=== PATIENT | female | born 1955 | race Caucasian/White ===

== ENCOUNTER 2020-01-15 13:58 | Inpatient (IN) | payer OTHER ==
[~2020-01-15] VITALS: Ht 154.9 cm; Wt 80.7 kg
[2020-01-15] MEDS ORDERED: ONDANSETRON HCL INJ 2MG/ML 2ML 2 MG/ML VIAL IV NR (14:00)
[2020-01-15] MEDS ORDERED: SODIUM CHLORIDE 0.9% 1000ML 1,000 ML IV STA ×2 (14:06→15:03)
--- NOTE | 2020-01-15 14:06 | Emergency Department Note ---
History of Present Illnes History of Present Illness Chief Complaint: Abdominal Complaints History of Present Illness This is a 64 year old female presents to the ED for dysuria with n/v and epigastric pain of one day duration. 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 Any updates have been documented here. Past Medical History Recent Fever: No Clinical Suspicion of Infectio: No Past Medical History: Hypertension, Diabetes Past Surgical History: Appendectomy Social History Smoking Cessation: Never Smoker Alcohol Use: None Any Illegal Drug Use: No Review of Systems Review of Systems Constitutional: Denies fever EENTM: Reports no symptoms Cardiovascular: Reports no symptoms Respiratory: Reports no symptoms Gastrointestinal: Reports abdominal pain, Reports nausea, Reports vomiting Genitourinary: Reports no symptoms Musculoskeletal: Reports no symptoms Integumentary: Reports no symptoms Neurological: Reports no symptoms Psychological: Reports no symptoms Endocrine: Reports no symptoms Hematological/Lymphatic: Reports no symptoms Physical Exam Related Data Allergies: Coded Allergies: No Known Allergies (Unverified , 01/15/20) Triage Vital Signs Vital Signs Date Time Temp Pulse Resp B/P (MAP) Pulse Ox O2 Delivery O2 Flow Rate FiO2 01/15/20 14:04 97.5 47 18 123/101 99 Room Air 01/15/20 16:14 2.0 Vital signs reviewed: Yes Physical Exam CONSTITUTIONAL Constitutional: Present well-developed, Present well-nourished, Present ill appearing HENT HENT: Present normocephalic, Present atraumatic, Present oropharynx clear/moist, Present nose normal HENT L/R: Present left ext ear normal, Present right ext ear normal EYES Eyes: Reports PERRL, Reports conjunctivae normal NECK Neck: Present ROM normal PULMONARY Pulmonary: Present effort normal, Present breath sounds normal CARDIOVASCULAR Cardiovascular: Present regular rhythm, Present bradycardia GASTROINTESTINAL Abdominal: Present soft, Present tender (epigastric) GENITOURINARY Genitourinary: Present exam deferred SKIN Skin: Present warm, Present dry MUSCULOSKELETAL Musculoskeletal: Present ROM normal NEUROLOGICAL Neurological: Present alert, Present oriented x 3, Present no gross motor or se nsory deficits PSYCHOLOGICAL Psychological: Present mood/affect normal, Present judgement normal Results Laboratory Lab results reviewed: Yes Laboratory comments Laboratory Tests Test 01/15/20 16:15 01/15/20 14:33 01/15/20 14:13 Arterial Blood pH 7.28 (7.35-7.45) Arterial Blood Partial Pressure CO2 53 mmHg (35-45) Arterial Blood Partial Pressure O2 116 mmHg (80-105) Arterial Blood HCO3 25 mmol/L (22-26) Arterial Blood Total CO2 26 Arterial Blood Oxygen Saturation 98.0 % (95-98) Arterial Blood Base Excess -2.0 mmol/L (-2 - 3) FiO2 28 % White Blood Count 22.38 x10e3/uL (4.8-10.8) Red Blood Count 4.41 x10e6/uL (3.6-5.1) Hemoglobin 11.6 g/dL (12.0-16.0) Hematocrit 39.5 % (34.2-44.1) Mean Corpuscular Volume 89.6 fL (81-99) Mean Corpuscular Hemoglobin 26.3 pg (28-32) Mean Corpuscular Hemoglobin Concent 29.4 g/dL (31-35) Red Cell Distribution Width 16.0 % (11.7-14.4) Platelet Count 433 x10e3/uL (140-360) Neutrophils (%) (Auto) 79.5 % (38.7-80.0) Lymphocytes (%) (Auto) 12.7 % (18.0-39.1) Monocytes (%) (Auto) 5.6 % (4.4-11.3) Eosinophils (%) (Auto) 0.4 % (0.0-6.0) Basophils (%) (Auto) 0.5 % (0.0-1.0) Neutrophils # (Auto) 17.8 (2.1-6.9) Lymphocytes # (Auto) 2.9 (1.0-3.2) Monocytes # (Auto) 1.3 (0.2-0.8) Eosinophils # (Auto) 0.1 (0.0-0.4) Basophils # (Auto) 0.1 (0.0-0.1) Absolute Immature Granulocyte (auto 0.28 x10e3/uL (0-0.1) Sodium Level 124 mmol/L (136-145) Potassium Level 7.1 mmol/L (3.5-5.1) Chloride Level 93 mmol/L (98-107) Carbon Dioxide Level 11 mmol/L (22-29) Anion Gap 27.1 mmol/L (8-16) Blood Urea Nitrogen 30 mg/dL (7-26) Creatinine 4.22 mg/dL (0.57-1.11) Estimat Glomerular Filtration Rate 11 ML/MIN (60-) BUN/Creatinine Ratio 7 (6-25) Glucose Level 537 mg/dL (74-118) Calcium Level 9.6 mg/dL (8.4-10.2) Total Bilirubin 0.4 mg/dL (0.2-1.2) Aspartate Amino Transf (AST/SGOT) 26 IU/L (5-34) Alanine Aminotransferase (ALT/SGPT) 21 IU/L (0-55) Alkaline Phosphatase 67 IU/L (40-150) Creatine Kinase 384 IU/L (29-168) Creatine Kinase MB 10.70 ng/mL (0-5.0) Troponin I < 0.001 ng/mL (0-0.300) Total Protein 7.6 g/dL (6.5-8.1) Albumin 3.4 g/dL (3.5-5.0) Globulin 4.2 g/dL (2.3-3.5) Albumin/Globulin Ratio 0.8 (0.8-2.0) Lipase 30 U/L (8-78) Urine Color Yellow (YELLOW) Urine Clarity Cloudy (CLEAR) Urine pH 5.5 (5 - 7) Urine Specific [place] 1.020 (1.010-1.025) Urine Protein >=300 (NEGATIVE) Urine Glucose (UA) 2+ (NEGATIVE) Urine Ketones Trace (NEGATIVE) Urine Blood 2+ (NEGATIVE) Urine Nitrite Positive (NEGATIVE) Urine Bilirubin 1+ (NEGATIVE) Urine Urobilinogen 0.2 mg/dL (0.2 - 1) Urine Leukocyte Esterase Negative (NEGATIVE) Urine RBC 21-50 /HPF (0-5) Urine WBC 6-10 /HPF (0-5) Urine Epithelial Cells Moderate /LPF (NONE) Urine Uric Acid Crystals (FEW) Urine Other Crystals Present (NONE) Urine Amorphous Sediment Few (FEW) Urine Bacteria Many /HPF (NONE) Urine Mucus Moderate (RARE) Imaging Imaging results reviewed: No Procedures 12 Lead ECG Interpretation ECG Interpretation : ECG: ECG 1 Salesperson Art Objects: Interpreted by ED physician Date: Jan 15, 2020 Time: 15:02 Prior ECG tracings: reviewed Rate: bradycardia BPM: 45 Conduction: complete RBBB ST segments normal: Yes T waves normal: Yes Clinical Impression: abnormal ECG Additional Comments Junctional rhythm with wide complex QRS Central Line Placement Central Line Location: right femoral Time out performed: No Patient Placed on Monitor/Puls: Yes Prep: mask, gown, gloves Local Anesthetic: lidocaine 1% Amount of anesthesia used (mL): 5 Ultrasound Used for Placement: No Central Line Lumen Inserted: triple Post Procedure: sutured in place Post Procedure X-ray: tip of catheter in good condition Patient tolerated procedure: well Complications: none Critical Care Time Total Critical Care Time (min): 31 Critcal care necessary due to: cardiac failure, circulatory failure, metabolic failure, shock Critcal care time spent by me: develop tx plan w patient/surrogate, discussion w consultants, evaluation patient response to tx, examination of patient, order/perform tx or interventions, order/review laboratory studies, order/review radiographic studies, re-evaluation of patient condition, vascular access procedures Assessment & Plan Medical Decision Making MDM Diff Dx : ACS, hyperkalemia, dehydration, shock, sepsis, DKA Patient with cardiotoxic HYPERKALEMIA which knocked out the SA node with resultant junctional bradycardia. Renal failure secondary to dehydration with resultant DKA. Patient HIGHLY CRITICAL. Assessment & Plan Final Impression: (1) DKA (diabetic ketoacidosis) (2) Renal failure (3) Hyperkalemia (4) Bradycardia with 31-40 beats per minute Depart Disposition: ADMITTED Home Meds Active Scripts Cephalexin Monohydrate (KEFLEX) 500 Mg Capsule, 500 MG PO Q12H, #10 Prov:ROSHAN GOMES MD 01/17/20 Insulin Lisp Protam/Lisp Human (HUMALOG MIX 75-25 VIAL) 100 Units/Ml Ml, 10 UNITS SC AC for 90 Days, ML Prov:ROSHAN GOMES MD 01/17/20 Nicotine (NICODERM CQ) 1 Each Patch.td24, 21 MG TOP DAILY for 30 Days Prov:ROSHAN GOMES MD 01/17/20 [Insulin Glargine] 100 UNITS/ML VIAL No Conflict Check, 32 UNITS SQ HS for 90 Days Prov:ROSHAN GOMES MD 01/17/20 Reported Medications Aspirin (ASPIRIN) 81 Mg Tab.chew, 81 MG PO DAILY 01/17/20 Atorvastatin Calcium (ATORVASTATIN CALCIUM) 20 Mg Tablet, 40 MG PO HS, #30 TAB 01/17/20 Carvedilol (CARVEDILOL) 3.125 Mg Tablet, 3.125 MG PO Q12H, #60 TAB 01/17/20 Medications in the ED Sodium Chloride 1,000 ml @ 0 mls/hr Q0M STAT IV ; Start 01/15/20 at 14:06; Stop 01/15/20 at 14:07 Ondansetron HCl 4 mg NOW IV ; Start 01/15/20 at 14:00; Stop 01/15/20 at 15:00 Calcium Gluconate 4.65 meq/Sodium Chloride 60 ml @ 60 mls/hr ONCE ONCE IV ; Start 01/15/20 at 15:15; Stop 01/15/20 at 15:57; Status DC Glucagon 1 mg ONCE ONCE IV ; Start 01/15/20 at 15:15; Stop 01/15/20 at 15:16 Sodium Chloride 1,000 ml @ 0 mls/hr Q0M STAT IV ; Start 01/15/20 at 15:03; Stop 01/15/20 at 15:04 Dopamine HCl/ Dextrose 250 ml @ ud STK-MED ONCE IV ; Start 01/15/20 at 15:27; Stop 01/15/20 at 15:22; Status DC Piperacillin Sod/ Tazobactam Sod 100 ml @ 100 mls/hr ONCE STAT IV ; Start 01/15/20 at 15:32; Stop 01/15/20 at 16:31 ED RODRIGUES DO Jan 15, 2020 14:06
[2020-01-15 15:11] LABS: BASOPHILS # (AUTO) 0.1 (0.0-0.1); BASOPHILS % 0.5 % (0.0-1.0); EOSINOPHILS # (AUTO) 0.1 (0.0-0.4); EOSINOPHILS % 0.4 % (0.0-6.0); HEMATOCRIT 39.5 % (34.2-44.1); HEMOGLOBIN 11.6 g/dL (12.0-16.0); LYMPHOCYTES # (AUTO) 2.9 (1.0-3.2); LYMPHOCYTES % 12.7 % (18.0-39.1); MEAN CORPUSCULAR HEMOGLOBIN 26.3 pg (28-32); MEAN CORPUSCULAR HGB CONC 29.4 g/dL (31-35); MEAN CORPUSCULAR VOLUME 89.6 fL (81-99); MONOCYTES # (AUTO) 1.3 (0.2-0.8); MONOCYTES % 5.6 % (4.4-11.3); NEUTROPHILS # (AUTO) 17.8 (2.1-6.9); NEUTROPHILS % 79.5 % (38.7-80.0); PLATELET COUNT 433 x10e3/uL (140-360); RED BLOOD COUNT 4.41 x10e6/uL (3.6-5.1)
[2020-01-15] MEDS ORDERED: CALCIUM GLUCONATE 10% INJ 4.65 MEQ in SODIUM CHLORIDE 0.9% 50ML 50 ML IV ONE (15:15)
[2020-01-15] MEDS ORDERED: GLUCAGON FOR INJ 1 MG VIAL IV ONE (15:15)
[2020-01-15] MEDS ORDERED: PIPERACILLIN/TAZO 4.5 GM 100 ML IV STA (15:32)
[2020-01-15 15:35] LABS: ALANINE AMINOTRANSFERASE 21 IU/L (0-55); ALBUMIN 3.4 g/dL (3.5-5.0); ALBUMIN/GLOBULIN RATIO 0.8 (0.8-2.0); ALKALINE PHOSPHATASE 67 IU/L (40-150); ANION GAP 27.1 mmol/L (8-16); BLOOD UREA NITROGEN 30 mg/dL (7-26); BUN/CREATININE RATIO 7 (6-25); CALCIUM 9.6 mg/dL (8.4-10.2); CARBON DIOXIDE 11 mmol/L (22-29); CHLORIDE 93 mmol/L (98-107); CREATINE KINASE 384 IU/L (29-168); CREATININE, SERUM 4.22 mg/dL (0.57-1.11); EST GLOMERULAR FILTRATION RATE 11 ML/MIN (60-); SODIUM 124 mmol/L (136-145)
[2020-01-15 15:36] LABS: GLUCOSE 537 mg/dL (74-118); POTASSIUM 7.1 mmol/L (3.5-5.1)
[2020-01-15] MEDS ORDERED: MORPHINE SULFATE 2 MG/ML SYR 1ML IV PRN (15:45)
[2020-01-15] MEDS ORDERED: ONDANSETRON HCL INJ 2MG/ML 2ML 2 MG/ML VIAL IV PRN (15:45)
[2020-01-15] MEDS ORDERED: SODIUM BICARBONATE 8.4% INJ 50 ML SYR IV STA (15:48)
[2020-01-15] MEDS ORDERED: SOD POLYSTYRENE SULFONATE SUSP 15 GM/60 ML BTL PO STA (15:48)
[2020-01-15] MEDS ORDERED: DEXTROSE 50% SYRINGE 50 ML IV STA (15:48)
[2020-01-15] MEDS: SODIUM CHLORIDE 0.9% 1000ML 1,000 ML IV SCH ×3 (16:00→18:31)
[2020-01-15] MEDS ORDERED: CALCIUM CHLORIDE IV ONE (16:00)
[2020-01-15] MEDS ORDERED: DEXTROSE 5% 1,000 ML IV ONE (16:00)
[2020-01-15] MEDS ORDERED: INSULIN REGULAR, HUMAN 100 UNIT/1 ML 3ML VIAL IV ONE (16:00)
[2020-01-15] MEDS ORDERED: SODIUM CHLORIDE 0.9% IV ONE (16:00)
[2020-01-15] MEDS ORDERED: FUROSEMIDE INJ 10 MG/ML 4 ML VIAL IV ONE (16:00)
[2020-01-15] MEDS ORDERED: CALCIUM CHLORIDE 10% 1.36 MEQ/ML 10ML SYR IV NR (16:00)
[2020-01-15] MEDS ORDERED: INSULIN REGULAR, HUMAN 3ML VL 100 UNIT in SODIUM CHLORIDE 0.9% 99 ML IV SCH ×2 (16:15)
[2020-01-15] MEDS ORDERED: POTASSIUM CHLORIDE 20MEQ/100ML 200 ML IV PRN (16:15)
[2020-01-15] MEDS ORDERED: MAGNESIUM SULF 1GRAM/DEXTROSE 100 ML IV PRN (16:15)
[2020-01-15 16:48] LABS: ABG HCO3 25 mmol/L (22-26); ABG PCO2 53 mmHg (35-45); ABG PH 7.28 (7.35-7.45); ABG PO2 116 mmHg (80-105); ABG TCO2 26
[2020-01-15 16:50] LABS: CLARITY,URINE CLOUDY (CLEAR); COLOR,URINE YELLOW (YELLOW); KETONES,URINE TRACE (NEGATIVE); LEUKOCYTE ESTERASE ,URINE NEGATIVE (NEGATIVE); NITRITE,URINE POSITIVE (NEGATIVE); PROTEIN,URINE DIPSTICK >=300 (NEGATIVE); URINE UROBILINOGEN 0.2 mg/dL (0.2 - 1)
[2020-01-15 16:51] LABS: BILIRUBIN,URINE 1+ (NEGATIVE)
[2020-01-15 17:08] LABS: BACTERIA,URINE MANY /HPF; RBC,URINE 21-50 /HPF (0-5)
[2020-01-15 17:09] LABS: AMORPHOUS SEDIMENT,URINE FEW (FEW); EPITHELIAL CELLS,URINE MODERATE /LPF; MUCUS,URINE MODERATE (RARE)
[2020-01-15 17:12] LABS: OTHER CRYSTALS,URINE PRESENT
--- NOTE | 2020-01-15 17:23 | Consultation ---
DATE OF CONSULTATION: Pulmonary Critical Care Consultation. CHIEF COMPLAINT: Malaise and fatigue. HISTORY OF PRESENT ILLNESS: The patient is a 64-year-old woman. She has a history of diabetes. She has been feeling ill over the past several weeks. She has noticed progressive weakness and lightheadedness. She has had some mild shortness of breath. She had some vomiting. She denies fever. When she came to the emergency department, she was found to have some bradycardia with a junctional rhythm. She also had borderline hypotension as well as an elevated potassium 7.1 and elevated blood sugar with an anion gap. She received insulin as well as bicarbonate and 2 L of fluid. She has noted some symptomatic improvement. She has started to urinate small amount in the Mehta. Her a arrhythmias corrected to a sinus rhythm at a rate of about 60. Nephrology is being consulted. PAST SURGICAL HISTORY: 1. Status post appendectomy. 2. Status post . PAST MEDICAL HISTORY: 1. Diabetes. 2. Hypertension. 3. Gastroesophageal reflux. 4. No prior history of kidney problems. 5. No prior history of respiratory problems. 6. No prior history of cardiac problems. ALLERGIES: NO KNOWN DRUG ALLERGIES. SOCIAL HISTORY: The patient is not an active smoker or drinker. FAMILY HISTORY: Family history is noncontributory. REVIEW OF SYSTEMS: The patient is afebrile. She did have some lightheadedness and dizziness that has improved. She has no headache. She has no neck pain. She is not having any chest pain. She has no cough. She has mild shortness of breath. She did have some vomiting, but she is not having any vomiting now. She has no abdominal pain. She has no leg edema. PHYSICAL EXAMINATION: VITAL SIGNS: Blood pressure is 119/45 and the saturation is 100% on 2 L, the pulse is now 103, the respiratory rate is normal. HEENT: Shows no facial swelling or erythema. LYMPHATIC: Shows no submandibular, cervical, or supraclavicular adenopathy. CARDIAC: Reveals regular rate and rhythm with normal S1, S2. LUNGS: Auscultation of lungs shows decreased breath sounds at the bases. There is no wheezing. ABDOMEN: Soft and nontender. There is no rebound or guarding. EXTREMITIES: Shows no leg edema or calf tenderness. There is no cyanosis or clubbing. SKIN: Shows no rashes. NEUROLOGICAL: Shows no focal abnormalities. LABORATORY DATA: White blood cell count is 22.4 and hemoglobin is 11.6, the platelet count is 433. The BUN to creatinine ratio is 30 to 4.22 and the potassium is 7.1. Sodium is 124. The carbon dioxide is 11. The chloride is 93. Anion gap is increased at 27. The blood sugar is 537. The troponin I is less than 00.1. Blood gas is 7.28, 53, 116, and 26. White blood cell count is 22.4, and the platelet count is normal. IMPRESSION: 1. Diabetic ketoacidosis. 2. Acute renal failure. 3. Hyperkalemia. 4. Leukocytosis. PLAN: 1. The patient received treatment for hyperkalemia. 2. Continue to give IV fluids. 3. Begin DKA protocol. 4. Repeat BUN, creatinine, and electrolytes in several hours. 5. Case discussed with Nephrology. Hopefully, the patient will not require any dialysis. Provided she continues to improve and her electrolytes improved, dialysis would not be indicated. Mendez Yin MD [facility]/MODL /[id number]
--- NOTE | 2020-01-15 17:43 | Consultation ---
DATE OF CONSULTATION: Brief Renal Consultation Full note to be dictated in a.m. HISTORY OF PRESENT ILLNESS: Ms. Dinora Sauceda is a 64-year-old female patient with past medical history of diabetes mellitus, presented to the emergency room at [facility] with nausea, vomiting, and uncontrolled blood sugars, found to be in likely diabetic ketoacidosis and junctional heart rhythm on the monitor and EKG and then subsequently found to have a potassium of 7.1. Creatinine was 4.3 mg/dL. Renal consultation has been asked for the management of what appears to be acute kidney injury on possibly chronic kidney disease, although stage for CKD is not yet known. The patient is receiving a stat treatment for the hyperkalemia in the ER including IV calcium chloride, IV insulin and then insulin drip for the DKA protocol. Also, 3 amps of bicarb IV push and I asked the emergency room doctor to place the patient on a bicarb drip of D5 water with 150 mEq sodium bicarb to run at 150 mL/h. The patient's bicarb on the chemistries was only 11. I did have a discussion with the emergency room doctor and also critical care doctor, Dr. Yin. Initially, the thought process was to place a Trialysis catheter. However, after discussion with Dr. Yin, the patient is now making urine as well as the fact that the patient's rhythm is sinus rhythm now. The patient is going to be getting every 2-hour basic metabolic panel checks and if the potassium continues to improve, then we will not require any urgent dialysis tonight. However, if the potassium stays high, then the patient may require to have a Trialysis catheter placed for dialysis tonight. Full dictation to follow in the morning. Luke Toro MD [facility]/MODL /[id number]
[2020-01-15 19:07] LABS: ANION GAP 18.8 mmol/L (8-16); CALCIUM 8.5 mg/dL (8.4-10.2); CREATININE, SERUM 3.98 mg/dL (0.57-1.11); MAGNESIUM 1.3 MG/DL (1.3-2.1)
[2020-01-15 19:09] LABS: POTASSIUM 6.8 mmol/L (3.5-5.1)
[2020-01-15 19:18] VITALS: BP 123/42
[2020-01-15] MEDS: INSULIN REGULAR, HUMAN 3ML VL 100 UNIT in SODIUM CHLORIDE 0.9% 99 ML IV SCH ×2 (19:30)
[2020-01-15 20:00] VITALS: BP 98/47
[2020-01-15] MEDS ORDERED: SODIUM BICARBONATE 8.4% INJ 50 ML SYR IV NR (20:00)
[2020-01-15] MEDS: SODIUM BICARBONATE 8.4% SYRING 150 ML in STERILE WATER IV SOLN 1,000 ML IV SCH (20:00)
[2020-01-15] MEDS ORDERED: ALBUTEROL SULF 0.083% NEB SOLN 3 ML NEB NEB NR (20:00)
[2020-01-15] MEDS ORDERED: SODIUM CHLORIDE 0.9% 1000ML 1,000 ML IV ONE ×2 (20:45)
[2020-01-15 21:00] VITALS: BP 98/71
[2020-01-15 22:00] VITALS: BP 121/68
[2020-01-15 22:43] LABS: ANION GAP 20.5 mmol/L (8-16); CALCIUM 8.2 mg/dL (8.4-10.2); CREATININE, SERUM 3.8 mg/dL (0.57-1.11); MAGNESIUM 1.2 MG/DL (1.3-2.1); POTASSIUM 5.5 mmol/L (3.5-5.1)
[2020-01-15 23:00] VITALS: BP 117/42
[2020-01-15 23:03] LABS: CREATINE KINASE MB 12.9 ng/mL (0-5.0)
[2020-01-15 23:59] VITALS: BP 133/46
[2020-01-16] VITALS (21 sets, daily range): BP systolic 88–146; BP diastolic 38–110
[2020-01-16] MEDS: SODIUM CHLORIDE 0.9% 1000ML 1,000 ML IV SCH ×6 (00:15→22:03)
[2020-01-16] MEDS: DEXTROSE 5%/0.45% SOD CHL 1,000 ML IV SCH ×2 (02:15→06:13)
[2020-01-16 02:40] LABS: BASOPHILS % 0.3 % (0.0-1.0); EOSINOPHILS # (AUTO) 0.1 (0.0-0.4); EOSINOPHILS % 0.4 % (0.0-6.0); HEMATOCRIT 34.7 % (34.2-44.1); HEMOGLOBIN 10.4 g/dL (12.0-16.0); LYMPHOCYTES # (AUTO) 1.1 (1.0-3.2); LYMPHOCYTES % 9.5 % (18.0-39.1); MEAN CORPUSCULAR HEMOGLOBIN 26.2 pg (28-32); MEAN CORPUSCULAR VOLUME 87.4 fL (81-99); MONOCYTES % 8.3 % (4.4-11.3); NEUTROPHILS # (AUTO) 9.7 (2.1-6.9); NEUTROPHILS % 81.1 % (38.7-80.0); PLATELET COUNT 300 x10e3/uL (140-360); RED BLOOD COUNT 3.97 x10e6/uL (3.6-5.1); RED CELL DISTRIBUTION WIDTH 15.9 % (11.7-14.4)
[2020-01-16 03:08] LABS: ALBUMIN 2.7 g/dL (3.5-5.0); ALBUMIN/GLOBULIN RATIO 0.8 (0.8-2.0); ANION GAP 21.6 mmol/L (8-16); CALCIUM 8.3 mg/dL (8.4-10.2); CREATININE, SERUM 3.81 mg/dL (0.57-1.11); POTASSIUM 5.6 mmol/L (3.5-5.1)
[2020-01-16] MEDS: INSULIN REGULAR, HUMAN 3ML VL 100 UNIT in SODIUM CHLORIDE 0.9% 99 ML IV SCH ×4 (05:30→15:30)
[2020-01-16] MEDS: SODIUM BICARBONATE 8.4% SYRING 150 ML in STERILE WATER IV SOLN 1,000 ML IV SCH ×3 (06:17→20:42)
[2020-01-16] MEDS ORDERED: MAGNESIUM SULF 1GRAM/DEXTROSE 100 ML IV ONE (06:22)
[2020-01-16 07:39] LABS: CREATINE KINASE MB 13.1 ng/mL (0-5.0)
[2020-01-16 08:43] LABS: BASOPHILS % 0.2 % (0.0-1.0); EOSINOPHILS # (AUTO) 0.1 (0.0-0.4); EOSINOPHILS % 0.6 % (0.0-6.0); HEMATOCRIT 29.8 % (34.2-44.1); HEMOGLOBIN 9.1 g/dL (12.0-16.0); LYMPHOCYTES # (AUTO) 1.4 (1.0-3.2); LYMPHOCYTES % 12.7 % (18.0-39.1); MEAN CORPUSCULAR HEMOGLOBIN 26.1 pg (28-32); MEAN CORPUSCULAR HGB CONC 30.5 g/dL (31-35); MEAN CORPUSCULAR VOLUME 85.6 fL (81-99); MONOCYTES # (AUTO) 0.8 (0.2-0.8); MONOCYTES % 7.3 % (4.4-11.3); NEUTROPHILS # (AUTO) 8.9 (2.1-6.9); NEUTROPHILS % 78.8 % (38.7-80.0); PLATELET COUNT 266 x10e3/uL (140-360); RED BLOOD COUNT 3.48 x10e6/uL (3.6-5.1); RED CELL DISTRIBUTION WIDTH 15.9 % (11.7-14.4)
[2020-01-16 09:15] LABS: ALBUMIN 2.5 g/dL (3.5-5.0); ALBUMIN/GLOBULIN RATIO 0.7 (0.8-2.0); CALCIUM 7.9 mg/dL (8.4-10.2); CREATININE, SERUM 3.33 mg/dL (0.57-1.11)
--- NOTE | 2020-01-16 09:27 | Consultation ---
DATE OF CONSULTATION: Renal Consultation Thank you, Dr. Garcia, for the consultation. HISTORY OF PRESENT ILLNESS: Ms. Sauceda is a pleasant 64-year-old female with past medical history significant for history of diabetes mellitus, came into the emergency room with what appears to be uncontrolled blood sugars as well as nausea, vomiting, found to be in diabetic ketoacidosis as well as having possible lactic acidosis and acute kidney injury on probable chronic kidney disease. Stage 4 CKD has not yet determined at this time. The patient also had a very high potassium at 7.1, was subsequently medically treated in the ER. Also then she had a junctional rhythm, which then improved to sinus rhythm after initial treatment in the ER and the patient had become nonoliguric, transferred to the ICU. She is not intubated. The patient is not in any respiratory distress. The patient had repeat potassium done at 6.8, was a repeat one. This was prior to insulin drip being started, once insulin drip was started and the patient was also placed on a bicarb drip by me. Subsequently, potassium improved to 5.5 and the last one was 5.6. The patient has not required dialysis since the potassium is coming down. She appears in no acute distress. No fever. No chills. No nausea. No vomiting. No diarrhea. No abdominal pain. No dysuria, frequency, or urgency of urination at this time. Her blood sugars are also better. Anion gap is also resolving. PAST MEDICAL HISTORY: As outlined above. ALLERGIES: NO KNOWN DRUG ALLERGIES. SOCIAL HISTORY: No tobacco. No alcohol use. FAMILY HISTORY: Noncontributory. REVIEW OF SYSTEMS: See HPI. Otherwise, all systems negative. MEDICATIONS: She takes insulin, currently also on IV fluids with bicarb. PHYSICAL EXAMINATION: VITAL SIGNS: Last blood pressure is 118/49, 96 pulse. The patient is afebrile. HEENT: No cervical lymphadenopathy. NECK: Supple without masses. No obvious JVD. Moist appearing oral mucosa. SKIN: Moist with good skin turgor. CHEST WALL: Good expansion. No chest wall tenderness. LUNGS: Clear to auscultation bilaterally. CARDIOVASCULAR: S1 and S2. No obvious gallop, rub, or murmur. ABDOMEN: Soft. Positive bowel sounds. Nontender. No organomegaly. EXTREMITIES: No evidence of left lower extremity edema. No clubbing or cyanosis. NEUROLOGICAL: Awake, alert, and oriented x3. Grossly nonfocal exam. LABORATORY DATA: Initially, potassium was 7.1 in the ER, now potassium on last check was 5.6, sodium 138, chloride 100, bicarb 22, BUN 36, creatinine 3.81, which is an improvement from the admission creatinine of 4.22. Bicarb initially was 11. It has improved now to 22. Anion gap is now resolving also. IMPRESSION AND PLAN: 1. Acute kidney injury on chronic kidney disease, stage 4 chronic kidney disease cannot be determined at this time. Acute kidney injury likely from prerenal azotemia secondary to diabetic ketoacidosis and volume depletion. I would continue the bicarb drip, sterile water with 3 amps of bicarb at 150 mL/h. For now, the patient does not require any urgent dialysis. We will avoid any potential potassium-sparing drugs. At this time, we will continue with the insulin drip also. Both the bicarb and insulin will help improve the patient's potassium. a. The patient is nonoliguric at this time. No current urgent dialysis is needed. I am waiting for the 7 o'clock labs to come back to see where the repeat potassium level is. b. We will also check labs in the morning including basic metabolic panel, mag, phos, CBC, urine protein to creatinine ratio and a baseline renal ultrasound to evaluate for any hydronephrosis. Also, check for any chronicity to her kidney disease. We will check a UA with microscopy culture and sensitivity, one has not already been done to evaluate further for any urinary tract infection. 2. Hypertension. Blood pressure is currently on low side of normal. However, blood pressure is labile, depending on whether or not the cuff is taking accurately. The patient has mostly been in the low 100s to one teens mmHg systolic BP. We will continue to monitor opt blood pressure lowering medications. 3. Hyperkalemia, is starting to resolve now. The patient's potassium one last check was 5.6. The patient does not at this time require urgent dialysis. We will continue to monitor and treat the potassium medically and we will make further recommendation. 4. Metabolic acidosis, combination likely of diabetic ketoacidosis, acute kidney injury state, possibly lactic acidosis. Continue with bicarb drip. Continue insulin drip. Continue to normalize anion gap and we will make further recommendations. For now, no urgent dialysis is needed. Thank you once again for the consultation. Case has been discussed with Dr. Yin and Dr. Martinez in the ER. Time spent in the consultation about 35 minutes. Luke Toro MD /MODL /[id number] cc: Chandana Garcia MD
[2020-01-16] MEDS ORDERED: DOCUSATE SODIUM 100 MG CAP PO PRN (10:45)
[2020-01-16] MEDS ORDERED: ACETAMINOPHEN 325 MG TAB PO PRN (10:45)
--- NOTE | 2020-01-16 10:47 | Diagnostic Imaging Report ---
EXAM: Renal Ultrasound INDICATION: ^eval size, hydronephrosis COMPARISON: None TECHNIQUE: Transverse and longitudinal images of the kidneys and bladder were obtained. FINDINGS: Right Kidney: Length: 11.1 cm Appearance: Normal echogenicity. Collecting system: No hydronephrosis Stones: None Cyst/Mass: None Left Kidney: Limited views due to overlying soft tissue. Length: 9.4 cm Appearance: Normal echogenicity. Collecting system: No hydronephrosis Stones: None Cyst/Mass: None Bladder: Decompressed by Mehta catheter. Incidentally noted is increased echogenicity of the liver. IMPRESSION: Negative for hydronephrosis or perinephric fluid collection. Incidentally noted hepatic steatosis. Signed by: Sj Cleaning MD on 01/16/2020 10:43 AM
--- NOTE | 2020-01-16 10:49 | NUR ---
H&P cc: dehydration with N/V and Hyperglycemia HPI: 64yoF, our clinic pt, developed N/V, found to be in DKA. Pt admits to N/V for past 4 days with glucose as high as 500. She did not contact the clinic, instead just came to hospital due to worsening feeling. Found to also have hyperkalemia and worsened renal function. EKG revealed junctional rhythm. Past Medical History: 1.CKD3 due to DM2 2. HLD 3. Insomnia 4. Cig use current 5. Overweight 5b.BMI 29.9 6. Diabetic nephropathy 7.Osteopenia 8.Peripheral edema 9.VitB12 deficiency 10. Diabetic neuropathy 11.Chronic pain syndrome 12.Malaise-/Fatigue 13.Benign Left breast cyst 14.Nocturia 15.Hypertension 16.Left arm arthralgia 17.Onychomycosis of toenails; RESOLVED URI RESOLVED RESOLVED Left arm tendonitis- RESOLVED RESOLVED LAZARA RESOLVED Past Surgical History: C-sec x2; appy Allergies; see emr FH/SH; single; has 2 children; current smoker Meds; see MAR ROS: no f/c/s/MEJÍA/cp/skin rash/confusion/vision changes/focal limb weakness/mood changes v/s revd PE tired appearing anicteric ns1s2 mod bs soft nt nd no e/t skin dry flat affect awake; potter labs/meds revd A//P: 64yoF Hyperkalemia- fluids; kayexalate; LAZARA- rehydrate; check BMP DKA- IVF/bicarbs/insulin CKD3 due to DM2- UTI- IV zosyn; cultures Obesity- 1/2 portion sizes; BMI 33- as above Prop: scd DIspo: Switch to scheduled lantus and premeal insulin; stop insulin gtt; cct>35mins ROSHAN GOMES MD, PHD.
[2020-01-16 11:24] LABS: CREATININE,URINE RANDOM 43.83 mg/dL (47-110); TOTAL PROTEIN, URINE 23.9 mg/dL (1-14)
[2020-01-16 11:30] LABS: CHOL/HDL RATIO 3.6 (3.0-3.6)
--- NOTE | 2020-01-16 11:37 | Consultation ---
DATE OF CONSULTATION: 01/16/2020 Cardiology Consultation REASON FOR CONSULTATION: Abnormal EKG. HISTORY OF PRESENT ILLNESS: Ms. Sauceda is a pleasant 64-year-old woman with history of type 2 diabetes mellitus, who presents with several days of fatigue, generalized discomfort and generalized weakness. She was noted to have on initial EKG sinus arrest with junctional escape rhythm in the 40s. She was normotensive. She was found to have a potassium over 7 and a creatinine over 4. Calcium, chloride, insulin, fluids, and bicarb were initiated with return to normal sinus rhythm. Since then, she has had no recurrent bouts of abnormal rhythm per report. On telemetry, right now she is in normal sinus rhythm. She denies any chest discomfort or shortness of breath. She denies any exertional symptoms other than in the last couple days feeling her legs were too weak to ambulate. She has no other complaints at this time. REVIEW OF SYSTEMS: A 12-system review negative except for as noted above. ALLERGIES: NO KNOWN DRUG ALLERGIES. PAST MEDICAL HISTORY: As per HPI. SOCIAL HISTORY: Denies smoking, alcohol, or drugs. FAMILY HISTORY: Noncontributory. PHYSICAL EXAMINATION: VITAL SIGNS: Temperature 99.3, blood pressure 118/49, respiratory rate 18, heart rate 105, and O2 saturation 95%. BMI 33. GENERAL: In no acute distress. Alert. NECK: No JVD. CHEST: Clear to auscultation. CARDIOVASCULAR: Regular rate and rhythm. Normal S1 and S2. ABDOMEN: Soft. Bowel sounds positive. EXTREMITIES: No edema. CARDIOVASCULAR MEDICATIONS: Reviewed. STUDIES: Reviewed. Sodium 138, potassium 5.6, chloride 100, bicarbonate 22, BUN 36, creatinine 3.8, and glucose 120. White blood cells 11.3, hemoglobin 9.1, and platelets 266. AST 28, ALT 28, and alkaline phosphatase 52. ASSESSMENT AND PLAN: 1. A 64-year-old woman presents with hyperkalemia in the setting of [id number] renal failure versus acute kidney injury. 2. Diabetic ketoacidosis, diabetes mellitus. 3. Anemia. 4. Sinus arrest in the setting of hyperkalemia with junctional escape rhythm, now converted to sinus rhythm. RECOMMEND: 1. Obtain echocardiogram. 2. Troponins have been within range. CK likely related to component rhabdomyolysis. 3. Continue management of diabetic ketoacidosis and intravascular fluid repletion. Monitor metabolic status and electrolyte abnormalities. Keep on telemetry. Nephrology has been consulted and monitoring the case. Potassium today is 5.6, being trended and managed per Nephrology. MD RODRIGUEZ Capone/GINETTE /[id number]
[2020-01-16 12:57] LABS: ANION GAP 16.4 mmol/L (8-16); CALCIUM 8.1 mg/dL (8.4-10.2); CREATININE, SERUM 2.88 mg/dL (0.57-1.11); MAGNESIUM 1.5 MG/DL (1.3-2.1)
[2020-01-16 12:58] LABS: POTASSIUM 5.4 mmol/L (3.5-5.1)
--- NOTE | 2020-01-16 13:44 | Progress Note ---
DATE: SUBJECTIVE: The patient feels better. She is urinating. She has remained on an insulin drip through the night. PHYSICAL EXAMINATION: VITAL SIGNS: Blood pressure is 100/53, saturation is 100% and the pulse is 92. HEENT: Shows no facial swelling or erythema. LYMPHATIC: Shows no submandibular, cervical, or supraclavicular adenopathy. CARDIAC: Reveals regular rate and rhythm with normal S1 and S2. LUNGS: Auscultation of lungs reveals rhonchorous breath sounds bilaterally. There is no wheezing. ABDOMEN: Soft and nontender. There is no rebound or guarding. EXTREMITIES: Shows no leg edema or calf tenderness. There is no cyanosis or clubbing. SKIN: Shows no rashes. NEUROLOGICAL: Shows no focal abnormalities. LABORATORY DATA: BUN to creatinine ratio is 31 to 2.88 and the potassium is 5.4. Other electrolytes are within normal limits. White blood cell count is 11.3 and hemoglobin is 9.1. The platelet count is 366. IMPRESSION: 1. Acute renal failure. 2. Diabetic ketoacidosis. 3. Hyperkalemia. 4. Leukocytosis. PLAN: 1. Continue DKA protocol. 2. Continue to monitor creatinine and electrolytes. 3. Wean off bicarb drip. 4. Out of bed as tolerated. Mendez Yin MD [facility] /[id number]
[2020-01-16] MEDS: PIPERACILLIN/TAZO 2.25 GM 50 ML IV SCH ×2 (14:37→22:03)
[2020-01-16] MEDS: NICOTINE 21 MG/EA PATCH TOP SCH (14:37)
[2020-01-16] MEDS ORDERED: INS LISP PRO/LISP HUMAN 75/25 100 UNITS/ML VIAL SC SCH (16:30)
--- NOTE | 2020-01-16 16:42 | NUR ---
Mehta removed per MD order and patient request, tolerated well.
[2020-01-16] MEDS: INS LISP PRO/LISP HUMAN 75/25 100 UNITS/ML VIAL SC SCH (16:57)
[2020-01-16 17:16] LABS: CREATINE KINASE MB 12.5 ng/mL (0-5.0)
[2020-01-16 17:22] LABS: CREATININE, SERUM 2.54 mg/dL (0.57-1.11); MAGNESIUM 1.5 MG/DL (1.3-2.1)
--- NOTE | 2020-01-16 18:26 | NUR ---
Pt up to bedside commode, voided 650cc urine, tolerated well.
--- NOTE | 2020-01-16 19:30 | NUR ---
Dr Garcia called regarding insulin drip. Anion gap and previous blood sugar levels given to MD, new orders received to turn off insulin drip and to give PM Lantus now. Orders received and carried out.
[2020-01-16 20:53] LABS: CALCIUM 8.4 mg/dL (8.4-10.2); CREATININE, SERUM 2.45 mg/dL (0.57-1.11); MAGNESIUM 1.4 MG/DL (1.3-2.1)
[2020-01-16] MEDS ORDERED: ZOLPIDEM TARTRATE 5 MG TAB PO PRN (21:00)
[2020-01-16] MEDS ORDERED: INSULIN GLARGINE 100 UNITS/ML VIAL SQ SCH ×2 (21:00)
[2020-01-17 03:00] VITALS: BP 122/71
[2020-01-17 05:10] LABS: BASOPHILS % 0.4 % (0.0-1.0); EOSINOPHILS # (AUTO) 0.4 (0.0-0.4); EOSINOPHILS % 4.8 % (0.0-6.0); HEMATOCRIT 29.8 % (34.2-44.1); HEMOGLOBIN 8.9 g/dL (12.0-16.0); LYMPHOCYTES # (AUTO) 2.3 (1.0-3.2); LYMPHOCYTES % 24.9 % (18.0-39.1); MEAN CORPUSCULAR HEMOGLOBIN 25.9 pg (28-32); MEAN CORPUSCULAR HGB CONC 29.9 g/dL (31-35); MEAN CORPUSCULAR VOLUME 86.9 fL (81-99); MONOCYTES # (AUTO) 0.6 (0.2-0.8); MONOCYTES % 6.9 % (4.4-11.3); NEUTROPHILS # (AUTO) 5.8 (2.1-6.9); NEUTROPHILS % 62.6 % (38.7-80.0); PLATELET COUNT 258 x10e3/uL (140-360); RED BLOOD COUNT 3.43 x10e6/uL (3.6-5.1); RED CELL DISTRIBUTION WIDTH 15.9 % (11.7-14.4)
[2020-01-17 05:36] LABS: ALBUMIN 2.7 g/dL (3.5-5.0); ALBUMIN/GLOBULIN RATIO 0.8 (0.8-2.0); CALCIUM 8.3 mg/dL (8.4-10.2); CREATININE, SERUM 2.06 mg/dL (0.57-1.11); MAGNESIUM 1.5 MG/DL (1.3-2.1); PHOSPHORUS 2.4 MG/DL (2.3-4.7)
[2020-01-17] MEDS: PIPERACILLIN/TAZO 2.25 GM 50 ML IV SCH (05:46)
[2020-01-17] MEDS ORDERED: HUMALOG MI100 UNITS/ SC (07:21)
[2020-01-17] MEDS ORDERED: Insulin Glargine SQ (07:21)
[2020-01-17] MEDS ORDERED: NICODERM CQ1 EAC2 TOP (07:21)
[2020-01-17] MEDS ORDERED: KEFLEX500 MG PO (07:21)
--- NOTE | 2020-01-17 07:27 | NUR ---
D/C summary Principal Dx: Hyperkalemia- fluids; kayexalate; Acute rhabdomyolysis- IVF LAZARA- rehydrate; check BMP DKA- IVF/bicarbs/insulin UTI- IV zosyn; cultures Secondary Dx: CKD3 due to DM2- Nicotine dependence- nicotine patch Obesity- 1/2 portion sizes; BMI 33- as above Prop: scd DIspo: Switch to scheduled lantus and premeal insulin; stop insulin gtt; cct>35mins d/c home with keflex and insulin stable f/u pcp 2 days and ./[place] 1 week d/c>35mins ROSHAN GOMES MD, PHD.
--- NOTE | 2020-01-17 07:29 | NUR ---
D/C summary Principal Dx: Hyperkalemia- fluids; kayexalate; Acute rhabdomyolysis- IVF LAZARA- rehydrate; check BMP DKA- IVF/bicarbs/insulin UTI- IV zosyn; cultures Junctional Escape rehythm due to Hyperkalemia- resolved Secondary Dx: CKD3 due to DM2- Nicotine dependence- nicotine patch Obesity- 1/2 portion sizes; BMI 33- as above Prop: scd DIspo: Switch to scheduled lantus and premeal insulin; stop insulin gtt; cct>35mins d/c home with keflex and insulin stable f/u pcp 2 days and ./[place] 1 week; in 1 week d/c>35mins ROSHAN GOMES MD, PHD.
[2020-01-17] MEDS: SODIUM CHLORIDE 0.9% 1000ML 1,000 ML IV SCH (07:30)
[2020-01-17] MEDS: NICOTINE 21 MG/EA PATCH TOP SCH (08:13)
[2020-01-17] MEDS: INS LISP PRO/LISP HUMAN 75/25 100 UNITS/ML VIAL SC SCH (08:14)
[2020-01-17 09:00] VITALS: BP 142/69
[2020-01-17] MEDS ORDERED: FAMOTIDINE 20 MG/2 ML VIAL IV SCH (09:00)
--- NOTE | 2020-01-17 09:15 | NUR ---
Okay per Dr Yin to d/c femoral line. Patient tolerated well, pressure held to site for 10 minutes, destat at site. No s/s bleeding or hematoma noted.
--- NOTE | 2020-01-17 10:08 | Progress Note ---
DATE: SUBJECTIVE: The patient is afebrile. The patient is currently feeling better. She is weaned off the insulin drip. PHYSICAL EXAMINATION: VITAL SIGNS: Blood pressure is 122/71 and pulse is 98. Saturation is 98% on 2 L. HEENT: Shows no facial swelling or erythema. LYMPHATIC: Shows no submandibular, cervical, or supraclavicular adenopathy. CARDIAC: Reveals regular rate and rhythm with normal S1 and S2. LUNGS: Auscultation of lungs reveals rhonchorous breath sounds bilaterally. There is no wheezing. ABDOMEN: Soft and nontender. There is no rebound or guarding. EXTREMITIES: Shows no leg edema or calf tenderness. LABORATORY DATA: White blood cell count is 9.2, hemoglobin is 8.9, and platelet count is 258. The BUN to creatinine ratio is 21 to 2.06 and the potassium is 5. Anion gap is corrected and the albumin is 2.7. IMPRESSION: 1. Diabetic ketoacidosis. 2. Acute renal failure. 3. Hyperkalemia. PLAN: 1. Transfer to floor. 2. Subcutaneous insulin. 3. Advance diet. 4. Continue to monitor creatinine and electrolytes. Mendez Yin MD [facility]/MODL /[id number]
[2020-01-17] MEDS ORDERED: CARVEDILOL3.125 MG PO (10:12)
[2020-01-17] MEDS ORDERED: ASPIRIN81 MG PO (10:13)
[2020-01-17] MEDS ORDERED: ATORVASTATIN CA20 MG PO (10:13)
--- NOTE | 2020-01-17 10:13 | Progress Note ---
DATE: 01/17/2020 Renal Progress Note SUBJECTIVE: Followed for acute kidney injury on chronic kidney disease, stage 4. The patient's kidney function continues to improve. The patient is being discharged today. DKA has resolved. No nausea. No vomiting. No shortness of breath. Potassium is better. Kidney function is better. OBJECTIVE: VITAL SIGNS: Have been noted and are stable. LUNGS: Clear to auscultation bilaterally. CARDIOVASCULAR: S1 and S2. No rub. ABDOMEN: Soft and nontender. EXTREMITIES: No edema. LABORATORY DATA: Potassium 5.0, BUN 21, and creatinine 2.1. IMPRESSION AND PLAN: 1. Acute kidney injury on chronic kidney disease, stage 4. Acute kidney injury, resolved. We will discontinue IV fluids. The patient can be discharged from renal standpoint. Follow up with me in about 1 to 2 weeks. 2. Hypertension. Blood pressure controlled. 3. Hyperkalemia, resolved, likely secondary to acute kidney injury state as well as diabetic ketoacidosis leading to uncontrolled blood sugars. 4. Metabolic acidosis also resolved. Combination of diabetic ketoacidosis and acute kidney injury. Luke Toro MD [facility]/MODL /[id number]
--- NOTE | 2020-01-17 10:55 | NUR ---
Patient discharged at this time, states, "If Dr Archuleta wants another Echo, we can do it in the office. I'm ready to go." IV d/c'd from left AC, tip intact. No s/s distress noted, no c/o pain at this time. Discharge instructions and prescriptions given to patient at this time, no questions noted. Refused wheelchair assistance, ambulated to private auto.
--- NOTE | 2020-01-17 12:24 | Progress Note ---
DATE: 01/17/2020 Cardiology Progress Note SUBJECTIVE: Ms. Sauceda has no complaints today. She has no chest pain or shortness of breath. She feels much better. OBJECTIVE: VITAL SIGNS: Temperature 98.5, heart rate 98, respiratory rate 17, blood pressure 122/71, O2 saturation 98%. GENERAL: No acute distress, alert. NECK: No JVD. CHEST: Clear to auscultation. CARDIOVASCULAR: Regular rate and rhythm. Normal S1, S2. ABDOMEN: Soft. Bowel sounds positive. EXTREMITIES: No edema. CARDIOVASCULAR MEDICATIONS: Reviewed. Nicotine patch 21 mg daily. STUDIES: Reviewed. Sodium 135, potassium 5, chloride 97, bicarbonate 28, BUN 21, creatinine 2, and glucose 103. White blood cells 9.2, hemoglobin 8.9, and platelets 258. AST 36, ALT 21, alkaline phosphatase 51. ASSESSMENT AND PLAN: A 64-year-old woman presenting with diabetic ketoacidosis, hyperkalemia, renal failure in the setting of nausea, vomiting, hypertension, and dyslipidemia. RECOMMENDATIONS: Aspirin 81 mg daily, carvedilol 3.125 mg every 12 hours and atorvastatin to patient's regimen. Outpatient followup advised in 4 weeks post discharge. MD RODRIGUEZ Capone/GINETTE /[id number]
== END 2020-01-17 10:55 | disposition home or self-care (01) | DRG 682 ==
LOC: ER 14:10 → ERHOLD 15:41 → ICU 18:24
PROVIDERS: ADMIT Internal Medicine; ATTEND Internal Medicine
DX: N17.9 Acute kidney failure, unspecified (principal); E11.10 Type 2 diabetes mellitus with ketoacidosis without coma; N39.0 Urinary tract infection, site not specified; M62.82 Rhabdomyolysis; E87.5 Hyperkalemia; N18.4 Chronic kidney disease, stage 4 (severe); E11.22 Type 2 diabetes mellitus with diabetic chronic kidney disease; I10 Essential (primary) hypertension; Z98.890 Other specified postprocedural states; R00.1 Bradycardia, unspecified; E66.9 Obesity, unspecified; Z68.33 Body mass index [BMI] 33.0-33.9, adult; Z72.0 Tobacco use; E66.3 Overweight; Z68.29 Body mass index [BMI] 29.0-29.9, adult; E11.21 Type 2 diabetes mellitus with diabetic nephropathy; M85.80 Other specified disorders of bone density and structure, unspecified site; E11.42 Type 2 diabetes mellitus with diabetic polyneuropathy; Z11.59 Encounter for screening for other viral diseases
CPT/HCPCS: 36415; 36600; 51700; 76770; 80048; 80053; 80061; 81001; 82550; 82553; 82570; 82805; 82948; 83036; 83605; 83690; 83735; 84100; 84156; 84484; 85025; 87086; 93005; 93306; 99285; J0610; J1610; J1815; J1817; J2405; J2543; J3475; J7030; J7050; J7799; U0002